=== PATIENT | male | born 1965 | race Caucasian/White ===

== ENCOUNTER 2016-06-21 20:24 | Emergency (ER) | payer BC ==
[~2016-06-21] VITALS: Ht 182.9 cm; Wt 104.5 kg
[~2016-06-21 20:24] MED LIST: HYDR2.5C37 TOP; LOSA1TAB PO; SIMV-151 PO
[2016-06-21 20:28] VITALS: TEMP 37.1; Ht 182.9 cm; Wt 104.5 kg
[2016-06-21] MEDS ORDERED: ROBITUSSIN DM PO (20:40)
[2016-06-21] MEDS ORDERED: CZR25 PO (20:40)
[2016-06-21] MEDS ORDERED: GUAI1TAB55 PO (20:40)
--- NOTE | 2016-06-21 21:12 | DIAGNOSTIC IMAGING REPORT ---
CHEST 2 VIEWS ROUTINE CLINICAL HISTORY: Productive cough COMPARISON STUDY: No previous studies for comparison. FINDINGS: The cardiac and mediastinal contours are normal. There is no evidence of focal pulmonary consolidation. There is no evidence of failure. No pleural effusions are visualized.[ IMPRESSION: No active disease in the chest. Electronically signed by: Brice Rajan M.D. 06/21/2016 9:11 PM Dictated Date/Time: 06/21/2016 9:10 PM
[2016-06-21] MEDS ORDERED: HYCODAN 60ML BOTTLE HOMEPACK PO ONE (21:30)
[2016-06-21] MEDS ORDERED: BENZ1CAP90 PO (21:32)
--- NOTE | 2016-06-21 21:33 | EMERGENCY ROOM VISIT NOTE ---
History First contact with patient: 20:42 Chief Complaint: COUGH Stated Complaint: COUGH Nursing Triage Summary: Patient states "I have had a cough for a week. It feels like there is something lodged in my throat." History of Present Illness The patient is a 50 year old male who presents to the Emergency Room with complaints of cough for the past one week. The patient reports that he has had a dry cough which is occasionally productive of clear phlegm. He reports feeling like something is stuck in his throat. He has been using Robitussin and Mucinex without relief. The patient denies any earaches, sore throat, chest pain, shortness of breath, abdominal pain, nausea, vomiting, neck pain or headache. She does not smoke. He denies any history of asthma or COPD. He denies any fevers. Review of Systems A complete 10-point Review of Systems was discussed with the patient, with pertinent positives and negatives listed in the History of Present Illness. All remaining Review of Systems questions can be considered negative unless otherwise specified. Past Medical/Surgical History Medical Problems: (1) No Known Active Medical Problems Social History Smoking Status: Former Smoker Alcohol Use: occasionally Drug Use: none Marital Status: Housing Status: lives with family Occupation Status: employed Current/Historical Medications Scheduled Guaifenesin Ext Rel (Mucinex Ext Rel), 600 MG PO Q12 Losartan Potassium (Losartan Potassium), 25 MG PO DAILY Simvastatin (Simvastatin), 20 MG PO DAILY Scheduled PRN Benzonatate (Tessalon Perles), 200 MG PO TID PRN for Cough [Robitussin Dm], 5 ML PO Q4 PRN for Cough Allergies Coded Allergies: No Known Allergies (Unverified , 06/21/16) Physical Exam Vital Signs Date Time Temp Pulse Resp B/P Pulse Ox O2 Delivery O2 Flow Rate FiO2 06/21/16 20:28 Room Air 06/21/16 20:28 37.1 94 16 138/82 95 Room Air Physical Exam VITALS: Vitals are noted on the nurse's note and reviewed by myself. Vital signs stable. GENERAL: This is a 50-year-old male, in no acute distress, nondiaphoretic, well- developed well-nourished. SKIN: Capillary reflex less than 2 seconds. HEENT: Normocephalic. PERRLA. EOMI. Nares patent. Mucous membranes moist. Neck is supple without nuchal rigidity. HEART: Regular rate and rhythm without murmurs gallops or rubs. LUNGS: Clear to auscultation bilaterally without wheezes, rales or rhonchi. No retractions or accessory muscle use. ABDOMEN: Positive bowel sounds x 4. Soft, nontender, without masses or organomegaly. NEURO: Patient was alert and oriented to person place and time. Medical Decision & Procedures ER Provider Diagnostic Interpretation: CHEST 2 VIEWS ROUTINE CLINICAL HISTORY: Productive cough COMPARISON STUDY: No previous studies for comparison. FINDINGS: The cardiac and mediastinal contours are normal. There is no evidence of focal pulmonary consolidation. There is no evidence of failure. No pleural effusions are visualized.[ IMPRESSION: No active disease in the chest. Medications Administered Medications (Trade) Dose Ordered Sig/Alfred Route Start Time Stop Time Status Last Admin Dose Admin Hydrocodone Bit/ Homatropine Methylb (Hycodan Elix Homepack 5/1.5MG/ 5ML) 1 homepack UD ONCE PO 06/21/16 21:30 06/21/16 21:31 DC 06/21/16 21:30 1 HOMEPACK Medical Decision Differential diagnosis includes pneumonia, influenza, upper infection, asthma exacerbation, COPD exacerbation, among others. The patient was evaluated as above. Chest x-ray was obtained and was unremarkable. There is no evidence of acute bacterial infection. He is afebrile and lungs are clear. The patient takes lisinopril, but has taken this for several years. I feel his symptoms are likely viral in nature. He will be given a Hycodan home pack and prescription for Tessalon Perles. He was instructed to follow-up with his primary care provider and did report that he has an appointment 4 days from now. He was instructed to return with any new/ worsening symptoms. He verbalized understanding of my assessment and treatment plan and was discharged home in good condition. Impression Primary Impression: Cough Departure Information Dispostion Home / Self-Care Condition GOOD Prescriptions Benzonatate (Tessalon Perles) 200 Mg Cap 200 MG PO TID Y for Cough, #30 CAP Prov: Cara Clayton .ALTAGRACIA 06/21/16 Referrals Jong Roy M.D. (PCP) Patient Instructions My [facility] Additional Instructions Hycodan cough syrup as needed. This medication does contain a narcotic. It is illegal for you to drive or operate machinery while taking this medication. Tessalon Perles as needed for cough during the day. Follow-up with your primary care provider as scheduled. Return for worsening symptoms, shortness of breath, chest pain or any other new/ concerning symptoms.
[2016-06-21 21:44] VITALS: BP 132/79; PULSE 94; O2SAT 94
== END 2016-06-21 21:47 | disposition home or self-care (01) ==
LOC: C.EDB 20:25 → C.EDD 21:47
DX: R05 Cough (principal); Z87.891 Personal history of nicotine dependence; Z79.899 Other long term (current) drug therapy

== ENCOUNTER → 2016-12-20 | Outpatient (CLI) | payer BC ==
[~2016-12-20] MED LIST changes: +BENZ1CAP90 PO; +CZR25 PO; +GUAI1TAB55 PO; -HYDR2.5C37 TOP; -LOSA1TAB PO; +ROBITUSSIN DM PO
[2016-12-20 13:13] LABS: ALB/GLOB RATIO 0.7 (0.9-2); ALKALINE PHOSPHATASE 149 U/L (45-117); ALT/SGPT 59 U/L (12-78); AST/SGOT 46 U/L (15-37); BLOOD UREA NITROGEN 14 mg/dl (7-18); CALCIUM 10.6 mg/dl (8.5-10.1); CARBON DIOXIDE 24 mmol/L (21-32); CHLORIDE 103 mmol/L (98-107); CHOLESTEROL 205 mg/dl (0-200); GLUCOSE 107 mg/dl (70-99); POTASSIUM 4.2 mmol/L (3.5-5.1); SODIUM 136 mmol/L (136-145); TRIGLYCERIDES 188 mg/dl (0-150); VERY LOW DENSITY LIPOPROT CALC 38 mg/dl
[2016-12-20 13:16] LABS: CHOLESTEROL/HDL RATIO 5.9; HDL CHOLESTEROL 35 mg/dl; LDL CHOLESTEROL CALCULATED 132 mg/dl
== END | disposition home or self-care (01) ==
LOC: C.LABBFT 09:06
PROVIDERS: ATTEND Physician Assistant Medical
DX: Z00.00 Encounter for general adult medical examination without abnormal findings (principal)

== ENCOUNTER → 2017-01-09 | Outpatient (CLI) | payer BC ==
[~2017-01-09] MED LIST changes: -BENZ1CAP90 PO
[2017-01-09 09:37] LABS: BASO % 0.6 %; BASO ABS # 0.04 K/uL (0-0.2); COMPLETE YES; EOS % 4.7 %; HEMATOCRIT 52.8 % (42-52); IG% 0.3 %; LYMPH % 33.1 %; LYMPH ABS # 2.16 K/uL (1.2-3.4); MEAN CELL VOLUME 88.7 fL (80-100); MEAN CORPUSCULAR HEMOGLOBIN 28.9 pg (25-34); MEAN CORPUSCULAR HGB CONC 32.6 g/dl (32-36); MEAN PLATELET VOLUME 11.6 fL (7.4-10.4); MONO % 16.1 %; NEUT % 45.2 %; PLATELET COUNT 242 K/uL (130-400); RED BLOOD COUNT 5.95 M/uL (4.7-6.1); WHITE BLOOD COUNT 6.53 K/uL (4.8-10.8)
[2017-01-09 09:56] LABS: ESTIMATED AVERAGE GLUCOSE 131 mg/dl; HA1C FLAG Normal (Normal)
[2017-01-09 10:41] LABS: THYROID STIMULATING HORMONE 1.3 uIu/ml (0.300-4.500)
[2017-01-11 05:51] LABS: ALBUMIN 4.3 G/DL (3.8-4.8); CREATININE UR 266 MG/DL (20-370); GAMMA GLOBULIN 1.9 G/DL (0.8-1.7); IONIZED CALCIUM** TC 19950E 5.36 MG/DL (4.8-5.6); TOTAL PROTEIN 8.4 G/DL (6.2-8.3)
== END | disposition home or self-care (01) ==
LOC: C.LAB1850 07:59
PROVIDERS: ATTEND Physician Assistant Medical
DX: E83.52 Hypercalcemia (principal); E88.09 Other disorders of plasma-protein metabolism, not elsewhere classified; R73.01 Impaired fasting glucose

== ENCOUNTER → 2017-03-01 | Outpatient (CLI) | payer BC ==
[2017-03-01 09:38] LABS: BASO % 0.7 %; BASO ABS # 0.04 K/uL (0-0.2); COMPLETE YES; EOS % 5.6 %; HEMATOCRIT 50.8 % (42-52); IG% 0.4 %; LYMPH % 28.6 %; LYMPH ABS # 1.59 K/uL (1.2-3.4); MEAN CORPUSCULAR HEMOGLOBIN 30.3 pg (25-34); MEAN CORPUSCULAR HGB CONC 34.8 g/dl (32-36); MEAN PLATELET VOLUME 11.4 fL (7.4-10.4); MONO % 11.9 %; NEUT % 52.8 %; PLATELET COUNT 231 K/uL (130-400); RED BLOOD COUNT 5.84 M/uL (4.7-6.1); WHITE BLOOD COUNT 5.56 K/uL (4.8-10.8)
[2017-03-01 09:43] LABS: PARTIAL THROMBOPLASTIN RATIO 1.1; PROTHROMBIN TIME (PATIENT) 10.5 SECONDS (9.0-12.0)
[2017-03-01 09:54] LABS: ALT/SGPT 53 U/L (12-78); AST/SGOT 31 U/L (15-37); BLOOD UREA NITROGEN 12 mg/dl (7-18); BUN/CREATININE RATIO 10.2 (10-20); CALCIUM 9.7 mg/dl (8.5-10.1); CARBON DIOXIDE 26 mmol/L (21-32); CHLORIDE 103 mmol/L (98-107); CREATININE 1.15 mg/dl (0.60-1.40); GLUCOSE 160 mg/dl (70-99); POTASSIUM 3.9 mmol/L (3.5-5.1); SODIUM 136 mmol/L (136-145); TOTAL IRON BINDING CAPACITY 359 mcg/dl (250-450)
[2017-03-01 10:09] LABS: ALB/GLOB RATIO 0.7 (0.9-2); ALKALINE PHOSPHATASE 187 U/L (45-117)
== END | disposition home or self-care (01) ==
LOC: C.LAB1850 06:51
PROVIDERS: ATTEND Internal Medicine Pulmonary Disease
DX: E78.00 Pure hypercholesterolemia, unspecified (principal); I34.0 Nonrheumatic mitral (valve) insufficiency; R91.1 Solitary pulmonary nodule; D86.9 Sarcoidosis, unspecified; E88.09 Other disorders of plasma-protein metabolism, not elsewhere classified; R59.0 Localized enlarged lymph nodes; R05 Cough

== ENCOUNTER 2017-03-29 05:40 | Inpatient (IN) | payer BC ==
[2017-03-19 09:54] VITALS: BMI 31.0
--- NOTE | 2017-03-19 10:24 | PAT Medication Instructions ---
Service Date Mar 19, 2017. Current Home Medication List Losartan Potassium (Losartan Potassium), 12.5 MG PO HS Simvastatin (Simvastatin), 20 MG PO HS Medication Instructions For Your Scheduled Surgery - Hold the following medications the night before surgery: Losartan Potassium (Losartan Potassium), 12.5 MG PO HS - Take the following medications as scheduled the night before surgery: Simvastatin (Simvastatin), 20 MG PO HS If you have any questions please call us at [phone] or [phone] or [phone]
[2017-03-29] VITALS (12 sets, daily range): BP systolic 106–153; BP diastolic 61–97; PULSE 48–97; TEMP 36.2–37; O2SAT 91–96; Ht 180.3 cm; Wt 103.5 kg
[~2017-03-29] VITALS: Ht 180.3 cm; Wt 103.5 kg
[~2017-03-29 05:40] MED LIST changes: -GUAI1TAB55 PO; -ROBITUSSIN DM PO
[2017-03-29] MEDS ORDERED: LACTATED RINGER'S 1000ML 1,000 ML IV SCH (06:00)
[2017-03-29] MEDS ORDERED: LIDOCAINE HCL 2% 2 ML VIAL (20MG/ML) ONE (06:37)
[2017-03-29] MEDS ORDERED: ONDANSETRON INJ 2 MG/ML 2 ML VIAL ONE (06:37)
[2017-03-29] MEDS ORDERED: FENTANYL CITRATE INJ 50 MCG/1 ML 2 ML VIAL ONE (06:37)
[2017-03-29] MEDS ORDERED: MIDAZOLAM HCL 1 MG/ML 2ML VIAL ONE (06:37)
[2017-03-29] MEDS ORDERED: ROCURONIUM BROMIDE 10 MG/ML 5 ML VIAL IV ONE (06:37)
[2017-03-29] MEDS ORDERED: DEXAMETHASONE SOD INJ 4 MG/ML VIAL ONE (06:37)
[2017-03-29] MEDS ORDERED: PROPOFOL IV EMULSION 10 MG/ML 20 ML VIAL IV ONE ×2 (06:37→08:47)
--- NOTE | 2017-03-29 07:10 | History & Physical Bridge Note ---
H&P Re-Evaluation Bridge Note: I have examined the patient, reviewed the History & Physical and in the interval since the performance of the History & Physical I have noted the following changes of clinical significance: No changes noted
[2017-03-29] MEDS ORDERED: SODIUM CHLORIDE 0.9% PF 50 ML VIAL ONE (07:17)
[2017-03-29] MEDS ORDERED: BUPIVACAINE LIPOSOME 1/3% 266 MG/20 ML VIAL INFIL ONE (07:17)
[2017-03-29] MEDS ORDERED: CEFAZOLIN SOD 1 GM VIAL ONE (08:08)
[2017-03-29] MEDS ORDERED: PHENYLEPHRINE 100MCG/ML 5ML SYR ONE (08:08)
[2017-03-29] MEDS ORDERED: EpHEDrine SULFATE 50MG/5ML SYR ONE (08:08)
[2017-03-29] MEDS ORDERED: PHENYLEPHRINE 100MCG/ML 5ML SYR IV PRN (08:15)
[2017-03-29] MEDS ORDERED: ONDANSETRON INJ 2 MG/ML 2 ML VIAL IV PRN ×2 (08:15→08:45)
[2017-03-29] MEDS ORDERED: EpHEDrine SULFATE INJ 50 MG/ML AMP IV PRN (08:15)
[2017-03-29] MEDS ORDERED: HYDROmorphone INJ 2 MG/ML SYR/VIAL IV PRN (08:15)
[2017-03-29] MEDS ORDERED: ATROPINE SULFATE 0.1 MG/ML 5ML SYR IV PRN (08:15)
[2017-03-29] MEDS ORDERED: NEOSTIGMINE METHYLSULFATE 5 MG/5 ML SYR ONE (08:17)
[2017-03-29] MEDS ORDERED: GLYCOPYRROLATE INJ 0.2 MG/ML VIAL ONE (08:17)
[2017-03-29] MEDS ORDERED: MoRPHine SULFATE 2 MG/ML CARP IV PRN (08:45)
--- NOTE | 2017-03-29 09:11 | OPERATIVE REPORT ---
DATE OF OPERATION: 03/29/2017 PROCEDURE: Fiberoptic bronchoscopy with biopsy and bronchioalveolar lavage. SURGEON: Dr. Junior. MEDICAL BILLING ASSISTANT: Bravo Antony, respiratory. ANESTHESIA: General anesthesia endotracheal intubation. INDICATION FOR PROCEDURE AND FINDINGS: Sonny Rios is a 51-year-old male who is remarkably active, who has increasing dyspnea and was evaluated by Dr. Bruno Day, and I was asked to do an open lung biopsy. In addition, he asked that we do a bronchoscopy for bronchiolar lavage we were there. After the patient's right thoracoscopy with biopsy, I performed a bronchioalveolar lavage. The patient was in supine position. His endotracheal tube was still in position. Fiberoptic bronchoscope was placed. The airways actually appeared to be a bit inflamed. Going down to the distal left main, there was a white plaque appearing mass changes in the bronchial wall at about the 4 o'clock, 6 o'clock position. Using biopsy forceps, I grasped this twice and got a pretty good biopsy sample from this. We had minor bleeding with this. I then performed a bronchioalveolar lavage on the left lung by instilling about 60 mL of fluid in and then suctioned this back. I then went down into the right upper lobe and right lower lobe as well as middle lobe, I did not see any endobronchial lesions anywhere else. I also did a bronchioalveolar lavage of about 60 mL in the right mainstem bronchus. I closely inspected the airways afterwards. He had no further bleeding. He tolerated it well. I removed the bronchoscope and awakened him from anesthesia. He tolerated it well. I attest to the content of the Intraoperative Record and any orders documented therein. Any exception s are noted below.
--- NOTE | 2017-03-29 09:20 | OPERATIVE REPORT ---
DATE OF OPERATION: 03/29/2017 PROCEDURE: Right thoracoscopy with biopsy of right lower lobe, right upper lobe. SURGEON: Marcos Junior MD. PRIEST: BENEDICTO Moeller (Mr. Novak was present for the entire case and was instrumental in managing the camera and also closing the incision). ANESTHESIA: General anesthesia with a single lumen tube. SPECIFICS OF PROCEDURE: Mr. Rios arrived at the [facility] on 03/29/2017. He was brought back to the operating room and underwent uncomplicated intubation with a single lumen tube. The patient was turned to the left lateral decubitus position, his right chest was prepped and draped in usual sterile fashion. Appropriate timeout was called and antibiotics have been given. A 5 mm incision was made about the fifth interspace anterior to the latissimus dorsi muscle. A 5 mm port was placed and carbon dioxide was insufflated. A 5 mm port was placed and there were no adhesions noted. The lung did look abnormal, especially along the 2 areas which were biopsied. I closely inspected the hilum as well as the inferior pulmonary ligament. He really had no lymphadenopathy. The lower lobe was grasped and another 5 mm port was placed in about the eighth interspace inferior to the scapular tip. Then, a 12 mm incision was made at about the 7th interspace anteriorly just above the diaphragm. The lower lobe was grasped and an Endo-LEON stapler was fired 3 times for a fairly sizeable biopsy of what appeared to be abnormal lung. A small piece was cut and sent for culture. Likewise was an abnormal aspect of the lateral upper lobe and this was grasped and an Endo-LEON stapler was fired twice to remove a pretty good size portion and again a piece was sent for culture. We had no bleeding and no air leaking from this. 266 mg of Exparel and 20 mL of solution was mixed with 40 mL of normal saline for 60 mL total. Under thoracoscopic guidance, this was then injected from the 2nd to the 11th rib. This was done as an intercostal block. A 24-Thai chest tube was placed through the anterior inferior incision and directed towards the apex. This was sewn in place with heavy silk suture. The incisions were closed with 4-0 Monocryl. He tolerated it well. I attest to the content of the Intraoperative Record and any orders documented therein. Any exception s are noted below.
--- NOTE | 2017-03-29 10:00 | DIAGNOSTIC IMAGING REPORT ---
CHEST ONE VIEW PORTABLE CLINICAL HISTORY: Lung biopsy. COMPARISON STUDY: Chest CT February 25, 2017. FINDINGS: A right apical chest tube is in place. A surgical staple line projects over the right midlung with associated mild nodular airspace opacity. Mild reticulonodular reticulonodular interstitial thickening is noted. There is a small amount of gas within the right chest wall. There is no pneumothorax. IMPRESSION: Right apical chest tube in place. No pneumothorax. Electronically signed by: Wenceslao Simon M.D. 03/29/2017 9:58 AM Dictated Date/Time: 03/29/2017 9:56 AM
[2017-03-29] MEDS: ACETAMINOPHEN IV 1,000 MG in EMPTY BAG 0 ML IV SCH ×2 (11:20→19:46)
[2017-03-29] MEDS ORDERED: INFLUENZA VIRUS QUAD VACCINE 0.5 ML SYR IM. ONE (11:30)
[2017-03-29] MEDS ORDERED: INFLUENZA ADMINISTRATION CHARGE ONE (11:30)
[2017-03-29] MEDS: KETOROLAC TROMETHAMINE 15 MG/ML VIAL IV. SCH ×2 (12:53→19:46)
--- NOTE | 2017-03-29 13:51 | Anesthesiology Progress Note ---
Anesthesia Post Op Note Date & Time Mar 29, 2017 at 13:51 Vital Signs Pain Intensity: 0.0 Vital Signs Past 12 Hours Date Time Temp Pulse Resp B/P (MAP) Pulse Ox O2 Delivery O2 Flow Rate FiO2 03/29/17 13:05 36.5 94 17 138/71 (93) 92 Room Air 03/29/17 12:04 67 18 121/71 (88) 94 Nasal Cannula 2.0 03/29/17 11:06 37.0 74 16 138/81 (100) 92 Nasal Cannula 2.0 03/29/17 10:42 92 Nasal Cannula 2.0 03/29/17 10:35 71 18 106/61 (76) 92 Nasal Cannula 2.0 03/29/17 10:05 36.2 81 16 109/62 (78) 92 Nasal Cannula 2.0 03/29/17 09:45 36.0 81 18 120/62 95 Oxymask 3 03/29/17 09:35 36.0 81 18 116/58 95 Oxymask 3 03/29/17 09:25 83 18 118/55 93 Oxymask 3 03/29/17 09:15 87 18 109/55 95 Oxymask 10 03/29/17 09:05 36.0 95 18 96/56 95 Oxymask 10 03/29/17 05:58 36.5 75 20 120/90 (100) 94 Room Air Notes Mental Status: alert / awake / arousable, participated in evaluation Pt Amnestic to Procedure: Yes Nausea / Vomiting: adequately controlled Pain: adequately controlled Airway Patency, RR, SpO2: stable & adequate BP & HR: stable & adequate Hydration State: stable & adequate Anesthetic Complications: no major complications apparent
[2017-03-29] MEDS: METOCLOPRAMIDE HCL INJ 5 MG/ML 2 ML VIAL IV. SCH ×2 (14:00→21:27)
[2017-03-29] MEDS: CEFAZOLIN IV 2,000 MG in SYRINGE 0 ML IV SCH ×2 (16:09→23:57)
[2017-03-29] MEDS ORDERED: COUGH DROP (SUGAR FREE) LOZ 24 LOZ/1 BOX ONE (16:44)
[2017-03-29] MEDS: OXYCODONE HCL IR 5 MG TAB (IMMEDIATE RELEASE) PO PRN (18:17)
[2017-03-29] MEDS: D5W AND 1/2NSS 1,000 ML IV SCH (18:18)
[2017-03-29] MEDS ORDERED: NURSING VERBAL MED ORDER ONE (18:30)
[2017-03-29] MEDS ORDERED: LOSARTAN POTASSIUM 25 MG TAB PO SCH (21:00)
[2017-03-29] MEDS ORDERED: SIMVASTATIN 20 MG TAB PO SCH (21:00)
[2017-03-29] MEDS: DOCUSATE SODIUM 100 MG CAP PO SCH (21:24)
[2017-03-30 02:04] VITALS: BP 109/64; PULSE 74; TEMP 36.5; O2SAT 92
[2017-03-30] MEDS: ACETAMINOPHEN IV 1,000 MG in EMPTY BAG 0 ML IV SCH (03:04)
[2017-03-30] MEDS: D5W AND 1/2NSS 1,000 ML IV SCH (03:04)
[2017-03-30] MEDS: KETOROLAC TROMETHAMINE 15 MG/ML VIAL IV. SCH (04:20)
[2017-03-30] MEDS: METOCLOPRAMIDE HCL INJ 5 MG/ML 2 ML VIAL IV. SCH (05:56)
[2017-03-30 06:00] VITALS: BP 130/83; PULSE 63; TEMP 36.5; O2SAT 96
[2017-03-30 06:56] VITALS: BP 131/79; PULSE 69; TEMP 36.4; O2SAT 94
--- NOTE | 2017-03-30 07:42 | DIAGNOSTIC IMAGING REPORT ---
CHEST ONE VIEW PORTABLE HISTORY: Lung biopsy. COMPARISON: Chest 03/29/2017. FINDINGS: Right-sided chest tube terminates within the right lung apex, unchanged. No definite pneumothorax area the heart remains mildly enlarged. There is mild interstitial thickening. Patchy densities within the right upper to midlung zone have improved. This could represent resolving postoperative change. IMPRESSION: 1. No pneumothorax. The right-sided chest tube is unchanged in position. 2. Right upper to midlung zone patchy densities have improved. This suggests resolving postoperative change. 3. Reticulonodular interstitial thickening, unchanged. Electronically signed by: Quintin Simmons M.D. 03/30/2017 7:40 AM Dictated Date/Time: 03/30/2017 7:38 AM
[2017-03-30] MEDS: DOCUSATE SODIUM 100 MG CAP PO SCH (07:44)
[2017-03-30] MEDS: CEFAZOLIN IV 2,000 MG in SYRINGE 0 ML IV SCH (07:50)
[2017-03-30] MEDS: OXYCODONE HCL IR 5 MG TAB (IMMEDIATE RELEASE) PO PRN (07:50)
[2017-03-30 09:02] VITALS: BP 131/79; PULSE 69; TEMP 36.4; O2SAT 94
--- NOTE | 2017-03-30 09:14 | Discharge Instructions ---
Discharge Instructions Date of Service Mar 30, 2017. Admission Reason for Admission: Lung Nodule Discharge Discharge Diagnosis / Problem: Possible interstitial lung disease Discharge Goals Goal(s): Learn about illness (Return to office for pathology resulys next week. ) Activity Recommendations Activity Limitations: resume your previous activity . Instructions / Follow-Up Instructions / Follow-Up Call Dr Junior ([phone] cell) for any problems related to the surgery. Remove your dressing and shower on 04-02-17. Current Hospital Diet Patient's current hospital diet: Regular Diet Discharge Diet Recommended Diet: Regular Diet Procedures Procedures Performed: Right Video Assisted Thoracoscopy with Lung Biopsy, Bronchial Alveolar Lavage Pending Studies Studies pending at discharge: yes (Pathology and microbiology results.) List of pending studies: Patholgy results. Laboratory Results Hemoglobin A1c Test 01/09/17 07:00 Range/Units Estimated Average Glucose 131 mg/dl Hemoglobin A1c 6.2 H 4.5-5.6 % Medical Emergencies . Who to Call and When: Medical Emergencies: If at any time you feel your situation is an emergency, please call 911 immediately. . Non-Emergent Contact Non-Emergency issues call your: Surgeon . "Provider Documentation" section prepared by Marcos Junior. . VTE Core Measure Inpt VTE Proph given/why not?: Enoxaparin (Lovenox)SQ, SCD's
--- NOTE | 2017-03-30 09:16 | DISCHARGE SUMMARY ---
DATE OF DISCHARGE: 03/30/2017 DISCHARGE DIAGNOSES: 1. Probable interstitial lung disease. 2. Status post thoracoscopic biopsy right lung. HOSPITAL COURSE: This is a very healthy 51-year-old male, has a chronic cough and has changes consistent with possible interstitial lung disease. I took him to the operating room yesterday and did a thoracoscopic biopsy. He tolerated this quite well. I also did a fiberoptic bronchoscopy and bronchioalveolar lavage. We biopsied his lower lobe and upper lobe.
--- NOTE | 2017-03-30 09:18 | DIAGNOSTIC IMAGING REPORT ---
CHEST ONE VIEW PORTABLE HISTORY: s/p chest tube removal COMPARISON: Chest 03/30/2017. FINDINGS: The right-sided chest tube has been removed. Suspect a tiny right basilar pneumothorax. Right midlung zone suture material and nodular density consistent with postoperative change. The heart is stable in size. No pleural effusions. IMPRESSION: Status post removal of the right-sided chest tube. Suspect a tiny right basilar pneumothorax. Electronically signed by: Quintin Simmons M.D. 03/30/2017 9:17 AM Dictated Date/Time: 03/30/2017 9:16 AM
--- NOTE | 2017-03-30 09:19 | DISCHARGE SUMMARY ---
DATE OF DISCHARGE: 03/30/2017 DISCHARGE DIAGNOSES: 1. Possible interstitial lung disease. 2. Status post thoracoscopic biopsy and bronchoscopy. PROCEDURE: This is a very nice 51-year-old male who has signs and symptoms consistent with possible interstitial lung disease, was referred to me for a lung biopsy. On 03/29/2017 the patient was brought to the operating room and underwent uncomplicated right thoracoscopy with biopsy of his right lower lobe and right upper lobe. He tolerated it quite well. We also did a bronchoscopy with bronchial lavage and saw no abnormalities intraoperatively. The patient had his chest tube removed. His chest x-ray looked quite good. He had really no pain and I did not send him home with pain medications. I will see him back in the office next week to go over his pathology results. Discharge instructions were given.
[2017-03-30 09:25] LABS: CREATININE 1.21 mg/dl (0.60-1.40)
[2017-03-30] MEDS ORDERED: ENOXAPARIN 40 MG/0.4 ML SYR SQ SCH (10:00)
== END 2017-03-30 09:39 | disposition home or self-care (01) | DRG 168 ==
LOC: C.ACU 05:40 → C.MSN 08:38 → ENRESERV 09:48
PROVIDERS: ADMIT Surgery; ATTEND Surgery
PROC: 0B9M8ZX Drainage of Bilateral Lungs, Via Natural or Artificial Opening Endoscopic, Diagnostic (ICD-10-PCS; principal; 2017-03-29 07:15)
PROC: 0BBC8ZX Excision of Right Upper Lung Lobe, Via Natural or Artificial Opening Endoscopic, Diagnostic (ICD-10-PCS; principal; 2017-03-29 07:15)
PROC: 0BB78ZX Excision of Left Main Bronchus, Via Natural or Artificial Opening Endoscopic, Diagnostic (ICD-10-PCS; principal; 2017-03-29 07:15)
PROC: 0BBF8ZX Excision of Right Lower Lung Lobe, Via Natural or Artificial Opening Endoscopic, Diagnostic (ICD-10-PCS; principal; 2017-03-29 07:15)
DX: J84.9 Interstitial pulmonary disease, unspecified (principal); F41.9 Anxiety disorder, unspecified; K76.0 Fatty (change of) liver, not elsewhere classified; E83.52 Hypercalcemia; I34.0 Nonrheumatic mitral (valve) insufficiency; E78.00 Pure hypercholesterolemia, unspecified; Z77.123 Contact with and (suspected) exposure to radon and other naturally occurring radiation; Z77.29 Contact with and (suspected) exposure to other hazardous substances

== ENCOUNTER → 2017-04-11 | Outpatient (CLI) | payer BC ==
--- NOTE | 2017-04-11 09:38 | DIAGNOSTIC IMAGING REPORT ---
CHEST 2 VIEWS ROUTINE CLINICAL HISTORY: PULMONARY NODULE COMPARISON STUDY: 03/30/2017 FINDINGS: Improved postoperative change right hemithorax. Resolution of the subcutaneous emphysema. No significant pneumothorax. Minimal plaque atelectasis right base. Unchanging nodularity right upper lung. Left lung remains clear. IMPRESSION: Improved postoperative evaluation of the chest. No significant residual pneumothorax. Unchanging nodularity right upper lung. The above report was generated using voice recognition software. It may contain grammatical, syntax or spelling errors. Electronically signed by: Syed León M.D. 04/11/2017 9:37 AM Dictated Date/Time: 04/11/2017 9:33 AM
== END | disposition home or self-care (01) ==
LOC: C.RAD1850 09:24
PROVIDERS: ATTEND Surgery
DX: R91.1 Solitary pulmonary nodule (principal)

== ENCOUNTER → 2017-05-14 | Outpatient (CLI) | payer BC, OTHER ==
--- NOTE | 2017-05-14 16:58 | DIAGNOSTIC IMAGING REPORT ---
CHEST 2 VIEWS ROUTINE CLINICAL HISTORY: SULFURIC ACID INHALATION COMPARISON STUDY: 04/11/2017 FINDINGS: The previously identified right upper lung zone opacity is less pronounced on the current study. There is stable right basilar atelectasis/scarring. There is no acute parenchymal consolidation. There is no failure. There are no pleural effusions.[ IMPRESSION: No active disease in the chest. Electronically signed by: Brice Rajan M.D. 05/14/2017 4:57 PM Dictated Date/Time: 05/14/2017 4:56 PM
== END | disposition home or self-care (01) ==
LOC: C.RAD 16:21
PROVIDERS: ATTEND Nurse Practitioner Family
DX: Z77.098 Contact with and (suspected) exposure to other hazardous, chiefly nonmedicinal, chemicals (principal); D86.9 Sarcoidosis, unspecified

== ENCOUNTER → 2017-06-17 | Outpatient (CLI) | payer BC ==
[~2017-06-17] MED LIST changes: +OPTIRAY 320 IV PRN
--- NOTE | 2017-06-17 08:45 | DIAGNOSTIC IMAGING REPORT ---
CT OF THE CHEST WITH IV CONTRAST CLINICAL HISTORY: R91.1 Pulmonary [id number] sarcoidosis COMPARISON STUDY: Chest x-ray dated 05/14/2017, CT scan dated 03/17/2015 , outside chest CT dated 02/25/2017 TECHNIQUE: Following the IV administration of 92 mL of Optiray-320, CT of the thorax was performed from the thoracic inlet to the lung bases. Images are reviewed in the axial, sagittal, and coronal planes. IV contrast was administered without complication. A dose lowering technique was utilized adhering to the principles of ALARA. CT DOSE: 620.06 mGy.cm FINDINGS: Thyroid: Imaged portions of the thyroid gland are normal in appearance. Thoracic aorta: The thoracic aorta is normal in course and caliber, noting standard 3-vessel arch anatomy. No aneurysm or dissection is seen. Pulmonary vasculature: The pulmonary trunk is normal in caliber. There are no central filling defects identified to suggest pulmonary embolus. Note that this examination was not protocoled for the evaluation of pulmonary emboli. HEART: The heart is normal in size and configuration, without pericardial effusion. Lungs and pleural spaces: Postsurgical changes are present on the right. There is diffuse micronodularity with upper lung zone predominance. Scattered scattered macro nodules are visualized, the largest of which are a 5 and 7 mm perifissural right middle lobe nodules. Mediastinum: There is no mediastinal lymphadenopathy. Mitzy: There is no evidence of pathologic hilar adenopathy Axilla: Clear. Upper abdomen: There is hepatic steatosis. The liver has a cirrhotic morphology. There is a stable anterior 6.4 cm mass, abutting or arising from the left lobe of the liver anteriorly. There are multiple left upper quadrant nodules, likely representing splenosis. There is deformity of the spleen with splenic calcification. Skeletal structures: There is a midthoracic vertebral body hemangioma IMPRESSION: 1. Diffuse pulmonary micro and macro nodules, similar to the prior study 2. No evidence of pathologic adenopathy 3. Hepatic steatosis and cirrhotic morphology of the liver 5. Multiple left upper quadrant nodules, possibly represent splenosis 6. Stable 6.4 cm mass, abutting or arising from the left lobe of the liver anteriorly Electronically signed by: Brice Rajan M.D. 06/17/2017 8:43 AM Dictated Date/Time: 06/17/2017 8:31 AM
== END | disposition home or self-care (01) ==
LOC: C.CTS 07:50
PROVIDERS: ATTEND Internal Medicine Pulmonary Disease
DX: R91.1 Solitary pulmonary nodule (principal); D86.9 Sarcoidosis, unspecified; R05 Cough; K76.0 Fatty (change of) liver, not elsewhere classified; R16.0 Hepatomegaly, not elsewhere classified